=== PATIENT | male | born 1960 | race Asian ===

== ENCOUNTER 2022-11-28 20:48 | Emergency (ER) | payer SELFPAY ==
[~2022-11-28] VITALS: Ht 167.6 cm; Wt 75.0 kg
[2022-11-28 20:55] VITALS: BP 170/96
[2022-11-28] MEDS ORDERED: ACETAMINOPHEN 325MG TABLET PO ONE (21:30)
[2022-11-28] MEDS ORDERED: ACETAMINOPHEN 325MG TABLET PO NR (23:45)
[2022-11-29] MEDS ORDERED: LIDO700A15 TP (00:36)
[2022-11-29] MEDS ORDERED: NAPR500T7 MT (00:36)
[2022-11-29] MEDS ORDERED: TOPUD MT (00:36)
== END 2022-11-29 00:55 | disposition home or self-care (01) ==
LOC: ER 21:01
DX: S16.1XXA Strain of muscle, fascia and tendon at neck level, initial encounter (principal); S39.012A Strain of muscle, fascia and tendon of lower back, initial encounter; V49.49XA Driver injured in collision with other motor vehicles in traffic accident, initial encounter; Y93.89 Activity, other specified; Y92.89 Other specified places as the place of occurrence of the external cause; Y99.8 Other external cause status; M79.661 Pain in right lower leg
CPT/HCPCS: 99283